=== PATIENT | male | born 1935 | race Caucasian/White ===

== ENCOUNTER 2017-03-31 04:47 | Inpatient (IN) | payer OTHER ==
[2017-03-31] VITALS (8 sets, daily range): BP systolic 137–153; BP diastolic 63–83; PULSE 50–91; TEMP 36.5–37; O2SAT 89–99; BMI 34.0
[~2017-03-31] VITALS: Ht 160 cm; Wt 86.0 kg
[2017-03-31] MEDS ORDERED: ACET325T96 PO (06:51)
[2017-03-31] MEDS ORDERED: DOCU-94 PO (06:51)
[2017-03-31] MEDS ORDERED: OMEG10007 PO (06:51)
[2017-03-31] MEDS ORDERED: MULTTAB58 PO (06:51)
[2017-03-31] MEDS ORDERED: PRLSR20 PO (06:51)
[2017-03-31] MEDS ORDERED: ASCO500T16 PO (06:51)
[2017-03-31] MEDS ORDERED: ASPI1CHW12 (06:51)
[2017-03-31] MEDS ORDERED: ATOR10TA82 PO (06:51)
[2017-03-31] MEDS ORDERED: MoRPHine SULFATE 2 MG/ML CARP IV PRN ×2 (07:00→10:45)
[2017-03-31] MEDS ORDERED: ONDANSETRON INJ 2 MG/ML 2 ML VIAL IV PRN ×2 (07:00→07:45)
[2017-03-31] MEDS ORDERED: MoRPHine SULFATE 4 MG/ML 1 ML CARP\\VIAL IV PRN ×2 (07:00→10:45)
[2017-03-31] MEDS ORDERED: LORAZEPAM 2 MG/ML 1 ML VIAL IV PRN ×2 (07:45)
[2017-03-31] MEDS: SODIUM CHLORIDE 0.9% 1000ML 1,000 ML IV SCH ×2 (07:59→17:30)
[2017-03-31] MEDS ORDERED: LORAZEPAM INJ 1 MG in SYRINGE 0.5 ML IV PRN (08:00)
[2017-03-31] MEDS ORDERED: LORAZEPAM INJ 0.5 MG in SYRINGE 0.75 ML IV PRN (08:00)
--- NOTE | 2017-03-31 08:32 | Surgery Consultation ---
Consultation Date of Consultation: Mar 31, 2017. Attending Physician: Ronak Walker M.D. Reason for Consultation: SBO History of Present Illness Patient is an 81M who was seen in [facility] for abdominal pain, nausea and vomiting which started yesterday afternoon. At that time he was diagnosed with a SBO based on CT findings and exam. He was originally going to be transferred to [facility] however they did not have any beds at the time. He was then transferred to [facility] for further care. At this time he is having some abdominal pain and nausea. He has been having intermittent episodes of vomiting as well. He is urinating without difficulty and passing some gas. Reports he had a small BM yesterday and about the same the day before. Denies blood in stool. No fever/chills/recent illness. PSHx significant for open colectomy. He currently take aspirin 81 mg QD. Denies use of other blood thinning or anticoagulant medications. No labs or Imaging on file in [facility] yet. Social History Smoking Status: Former Smoker Allergies Coded Allergies: Penicillins (Verified Allergy, Unknown, 03/31/17) HIVES Uncoded Allergies: N (Allergy, Unknown, 04/20/02) NKFA (Allergy, Unknown, 04/20/02) NO (Allergy, Unknown, 04/20/02) NO-CLOTH ADHESIVE CAUSES BLISTERS (Allergy, Unknown, 04/20/02) PCN-HIVES (Allergy, Unknown, 04/20/02) Home Medications Scheduled Acetaminophen Tab (Tylenol), 650 MG PO BID Ascorbic Acid (Ascorbic Acid), 500 MG PO DAILY Aspirin (Aspirin 81 Low Dose), DAILY Atorvastatin (Lipitor), 10 MG PO DAILY Docusate Sodium (Colace), 1 CAP PO BID Fish Oil ([place]-3), 1 CAP PO DAILY Multiple Vitamin (Multivitamin), 1 TAB PO DAILY Omeprazole (Prilosec), 20 MG PO DAILY Current Inpatient Medications Current Inpatient Medications Medications (Trade) Dose Ordered Sig/Salvatore Route Start Time Stop Time Status Last Admin Dose Admin Sodium Chloride 1,000 ml @ 100 mls/hr Q10H IV 03/31/17 07:00 04/30/17 06:59 03/31/17 07:59 100 MLS/HR Ondansetron HCl (Zofran Inj) 4 mg Q6H PRN IV 03/31/17 07:00 04/30/17 06:59 Morphine Sulfate (MoRPHine SULFATE INJ) 2 mg PRN PRN IV 03/31/17 07:00 04/14/17 06:59 Morphine Sulfate (MoRPHine SULFATE INJ) 4 mg PRN PRN IV 03/31/17 07:00 04/14/17 06:59 Ondansetron HCl (Zofran Inj) 4 mg Q6H PRN IV 03/31/17 07:45 04/30/17 07:44 Lorazepam 0.5 mg/ Syringe 1 ml @ 1 mls/min Q4H PRN IV 03/31/17 08:00 04/30/17 07:59 Lorazepam 1 mg/ Syringe 1 ml @ 1 mls/min Q4H PRN IV 03/31/17 08:00 04/30/17 07:59 Review of Systems Constitutional: No fever, No chills Abdomen: + pain (Generalized), + nausea, + vomiting, No diarrhea, No constipation Genitourinary - Male: No dysuria Physical Exam Date Time Temp Pulse Resp B/P (MAP) Pulse Ox O2 Delivery O2 Flow Rate FiO2 03/31/17 06:27 37.0 79 20 138/63 97 Nasal Cannula 5.0 Patient in room sitting up on side of bed hunched over. Family present sitting and standing outside the room. General Appearance: WD/WN, + mild distress Head: normocephalic, atraumatic Neck: trachea midline Respiratory/Chest: no respiratory distress, no accessory muscle use Abdomen/GI: no organomegaly, no pulsatile mass, + tenderness (Generalized), + distended (Mild) Neurologic/Psych: alert, normal mood/affect, oriented x 3 Skin: normal color, warm/dry Assessment & Plan Abdominal pain, nausea, vomiting, CT showing findings significant for SBO, Labs and imaging from [facility] reviewed. Pain controlled, mild leukocytosis, NGT placed. Will opt for conservative management at this time. NPO, Continue NGT on LIS, IV Fluids, IV pain medication PRN, IV Zofran PRN for nausea, SCDs. Patient seen and examined with Dr. Carrillo - Findings discussed. Please contact with questions or concerns.
[2017-03-31] MEDS ORDERED: ALBINS INH (09:57)
[2017-03-31] MEDS ORDERED: FERR325T5 PO (09:57)
--- NOTE | 2017-03-31 10:15 | History and Physical ---
History & Physical Date & Time of Service: Mar 31, 2017 at 09:52 Chief Complaint: SBO Primary Care Physician: Derek Armijo M.D. History of Present Illness Source: patient, hospital records This is an 81 y/o male with a history of HTN, HLD, DM II, COPD, pulmonary fibrosis, h/o prostate cancer, and GERD who presented on 03/31 from [facility] with abdominal pain and small bowel obstruction. The patient states he had developed abdominal pain, nausea and vomiting one day prior to arrival. He initially presented to the [facility] and was found to have a small bowel obstruction that was confirmed by CT. He was then transferred to [facility] for management. NGT was placed which has had good output. He currently denies any abdominal pain and states his nausea and vomiting have resolved. He does state that he had a very small, loose bowel movement early this morning around 2 am. He complains of a sore throat now after the NGT was placed. He reports a history of an open colectomy due to diverticulitis over 20 years ago, with h/o colostomy and s/p take down. He also had a laparoscopic cholecystectomy prior to that. The patient denies fevers, chills, sweats, chest pain, palpitations, claudication, cough, wheezing, shortness of breath, nausea, vomiting, abdominal pain, dysuria, hematuria, urinary retention, paralysis, weakness, numbness and tingling. Past Medical/Surgical History HTN HLD DM II COPD Pulmonary fibrosis H/o prostate cancer s/p cryotherapy GERD Surgical history: lap gagandeep, open colectomy w/colostomy, colostomy take down Family History Non-contributory Social History Smoking Status: Former Smoker (quit 30 years ago) Smokeless Tobacco Use: No Alcohol Use: occasionally (rarely, about 1 glass of wine per month) Drug Use: none Marital Status: Housing status: lives with significant other Occupational Status: retired Immunizations History of Influenza Vaccine: Unknown Multi-Drug Resistant Organisms History of MDRO: No Allergies Coded Allergies: Penicillins (Verified Allergy, Unknown, 03/31/17) HIVES Uncoded Allergies: N (Allergy, Unknown, 04/20/02) NKFA (Allergy, Unknown, 04/20/02) NO (Allergy, Unknown, 04/20/02) NO-CLOTH ADHESIVE CAUSES BLISTERS (Allergy, Unknown, 04/20/02) PCN-HIVES (Allergy, Unknown, 04/20/02) Home Medications Scheduled Acetaminophen Tab (Tylenol), 650 MG PO BID Ascorbic Acid (Ascorbic Acid), 500 MG PO DAILY Aspirin (Aspirin 81 Low Dose), DAILY Atorvastatin (Lipitor), 1 TAB PO DAILY Docusate Sodium (Colace), 1 CAP PO BID Ferrous Sulfate (Ferrous Sulfate), 1 TAB PO DAILY Fish Oil ([place]-3), 1 CAP PO DAILY Losartan Potassium (Losartan Potassium), 25 MG PO DAILY Multiple Vitamin (Multivitamin), 1 TAB PO DAILY Nintedanib Esylate (Ofev), 150 MG PO DAILY Omeprazole (Prilosec), 20 MG PO DAILY Tamsulosin HCl (Tamsulosin HCl), 0.4 MG PO DAILY Scheduled PRN Ipratropium-Albuterol (Duoneb), 1 TREATMENT INH Q6H PRN for SOB/Wheezing Review of Systems Constitutional: No fever, No chills, No sweats Eyes: No worsening of vision, No eye pain, No diplopia ENT: +Sore throat. No hearing loss, No nasal symptoms, No trouble swallowing Respiratory: No cough, No wheezing, No shortness of breath Cardiovascular: No chest pain, No claudication, No palpitations Abdomen: No pain, No nausea, No vomiting Musculoskeletal: No joint pain, No muscle pain, No swelling Genitourinary - Male: No dysuria, No urinary retention, No hematuria Neurologic: No paralysis, No weakness, No numbness/tingling Integumentary: No rash, No itch, No color change Physical Exam Vital Signs Date Time Temp Pulse Resp B/P (MAP) Pulse Ox O2 Delivery O2 Flow Rate FiO2 03/31/17 07:15 Nasal Cannula 5.0 03/31/17 07:15 36.5 82 20 137/83 (101) 97 Nasal Cannula 5.0 03/31/17 06:27 37.0 79 20 138/63 97 Nasal Cannula 5.0 General appearance: +Obese. Well-developed, well-nourished, no apparent distress Head: Normocephalic, atraumatic Eyes: Normal inspection, PERRL, EOMI ENT: +NGT in place. Normal ENT inspection, hearing grossly normal, pharynx normal Neck: Supple, no JVD, trachea midline Respiratory/Chest: +Diffuse rhonchi, wheezing in bases. On 5L NC. Normal breath sounds, no respiratory distress Cardiovascular: +Systolic murmur. Regular rate & rhythm, no gallop Abdomen/GI: +Upper quadrants mildly TTP. Normal bowel sounds, soft Extremities/Musculoskeletal: +1+ pitting edema. Normal inspection, no calf tenderness Neurological/Psych: Alert, normal mood/affect, oriented x 3 Skin: Normal color, warm/dry, no rash Impression Assessment and Plan 81 y/o male with a history of HTN, HLD, DM II, COPD, pulmonary fibrosis, h/o prostate cancer, BPH, and GERD who presented on 03/31 from [facility] with abdominal pain and small bowel obstruction. Pt arrived afebrile, VSS. Labs from OSH show leukocytosis with WBC of 14. Small bowel obstruction -Admit to med/surg -Continue NGT on low intermittent suction -General surgery consulted, appreciate recs: NPO, continue NGT on LIS. Continue IVF, IV pain medication and IV Zofran prn, and SCDs. -NSS at 100 cc/hr -Morphine 2-4 mg IV q4h prn pain, Zofran 4 mg IV q6h prn pain HTN, HLD--stable -Taking ASA, losartan 25 mg PO qd, Lipitor 20 mg PO qd. Currently on hold while NPO DM II--diet controlled only per pt -Check HgbA1c -Insulin sliding scale -Check BSGs q6h while NPO COPD, pulmonary fibrosis--history per pt. No maintenance therapy for COPD, only DuoNebs q6h prn and chronic oxygen -Pt wears 3L NC at rest, 4-5L NC with ambulation at home -O2 by protocol. Currently on 5L -Start DuoNebs QIDR and q2h prn SOB/wheezing -Reports taking Ofev for pulmonary fibrosis, originally BID but now only qd H/o prostate cancer s/p cryotherapy--in remission per pt BPH -Takes Flomax 0.4 mg PO hs at home, on hold while NPO GERD -Convert Prilosec to Protonix when taking PO DVT prophylaxis -Hold chemical prophylaxis in case procedure is needed -MANGO delaney and SCDs Code Status -Level I, FULL RESUSCITATION STATUS PA Physician Supervision Note: I interviewed and examined the patient. Discussed with Abbie Zamarripa PAC and agree with findings and plan as documented in the note. Any exceptions or clarifications are listed here: None Patient is much relieved after the NG tube drained over a liter of gastric contents. He's never had a small bowel obstruction since his previous surgeries on his abdomen. He's had an ileostomy with reversal after a bowel resection due to diverticulitis. Vital signs reviewed and stable Abdomen exam shows distention nontender hyper active bowel sounds Small bowel obstruction with concern for adhesions given previous abdominal surgery, nothing by mouth status IV fluid hydration evaluation by general surgery managing diabetes with insulin sliding scale monitoring for toxic effect continuing monitoring chronic problems of COPD hypertension and BPH Documented By: Carmelo Aleman Level of Care Med/Surg Advanced Directives Existing Living Will: Yes Existing Power of Event Operations Manager: No Resuscitation Status FULL RESUSCITATION VTE Prophylaxis VTE Risk Assessment Done? Y/N: Yes Risk Level: Moderate Given or contraindicated: Josue Su, SCD's
[2017-03-31 10:23] LABS: HEMATOCRIT 38.3 % (42-52); HEMOGLOBIN 13.2 g/dL (14.0-18.0); MEAN CELL VOLUME 90.1 fL (80-100); MEAN CORPUSCULAR HEMOGLOBIN 31.1 pg (25-34); MEAN CORPUSCULAR HGB CONC 34.5 g/dl (32-36); MEAN PLATELET VOLUME 8.9 fL (7.4-10.4); PLATELET COUNT 217 K/uL (130-400); RED CELL DISTRIBUTION WIDTH CV 12.7 % (11.5-14.5); RED CELL DISTRIBUTION WIDTH SD 41.9 fL (36.4-46.3); WHITE BLOOD COUNT 10.54 K/uL (4.8-10.8)
[2017-03-31] MEDS ORDERED: MAGNESIUM HYDROXIDE SUSP 30 ML UDC PO PRN (10:30)
[2017-03-31] MEDS ORDERED: ACETAMINOPHEN 325 MG TAB PO PRN (10:30)
[2017-03-31] MEDS ORDERED: GLUCAGON FOR INJ 1 MG VIAL SQ PRN (10:30)
[2017-03-31] MEDS ORDERED: DEXTROSE 50% 50 ML SYR IV PRN (10:30)
[2017-03-31] MEDS ORDERED: GLUCOSE 40% GEL 15 GM TUBE PO PRN (10:30)
[2017-03-31] MEDS ORDERED: POLYETHYLENE (MIRALAX) 17 GM PACK PO PRN (10:30)
[2017-03-31] MEDS ORDERED: ALUMINUM/MAGNESIUM/SIMETH (MAALOX MAX) 30 ML UDC PO PRN (10:30)
[2017-03-31] MEDS ORDERED: GLUCOSE 10 TABS/TUBE PO PRN (10:30)
[2017-03-31] MEDS ORDERED: CZR25 PO (10:31)
[2017-03-31] MEDS ORDERED: ATOR-54 PO (10:31)
[2017-03-31] MEDS ORDERED: IPRASOL4 INH (10:31)
[2017-03-31] MEDS ORDERED: FLM4 PO (10:31)
[2017-03-31] MEDS ORDERED: NINT1CAP2 PO (10:34)
[2017-03-31 10:45] LABS: CALCIUM 8.6 mg/dl (8.5-10.1); CREATININE 1.48 mg/dl (0.60-1.40); POTASSIUM 3.6 mmol/L (3.5-5.1)
[2017-03-31] MEDS: INSULIN ASPART 100 UNITS/ML 3 ML PEN SC SCH ×4 (12:00→23:52)
[2017-03-31] MEDS: ALBUT/IPRATROP 3MG/0.5MG NEB 3 ML VIAL INH SCH ×3 (12:01→20:06)
[2017-03-31] MEDS ORDERED: HydrALAZINE HCL 20 MG/ML VIAL IV PRN (19:45)
[2017-03-31] MEDS ORDERED: NURSING VERBAL MED ORDER ONE ×2 (21:15→23:15)
[2017-03-31] MEDS: CHLORASEPTIC 1.4% SOLN 180 ML BTL MT PRN (22:34)
[2017-04-01] VITALS (7 sets, daily range): BP systolic 117–167; BP diastolic 55–89; PULSE 67–92; TEMP 36.6–36.9; O2SAT 75–99
[2017-04-01] MEDS: SODIUM CHLORIDE 0.9% 1000ML 1,000 ML IV SCH (03:09)
[2017-04-01] MEDS: INSULIN ASPART 100 UNITS/ML 3 ML PEN SC SCH ×3 (06:00→18:00)
[2017-04-01 06:51] LABS: HEMATOCRIT 39.4 % (42-52); HEMOGLOBIN 13.3 g/dL (14.0-18.0); MEAN CELL VOLUME 92.3 fL (80-100); MEAN CORPUSCULAR HEMOGLOBIN 31.1 pg (25-34); MEAN CORPUSCULAR HGB CONC 33.8 g/dl (32-36); MEAN PLATELET VOLUME 8.9 fL (7.4-10.4); PLATELET COUNT 200 K/uL (130-400); RED CELL DISTRIBUTION WIDTH CV 12.9 % (11.5-14.5); WHITE BLOOD COUNT 11.48 K/uL (4.8-10.8)
[2017-04-01] MEDS: ALBUT/IPRATROP 3MG/0.5MG NEB 3 ML VIAL INH SCH ×4 (07:14→19:28)
--- NOTE | 2017-04-01 07:17 | SURGERY PROGRESS NOTE ---
DATE: 04/01/2017 Gulshan feels much better since yesterday and his NG tube has been inserted. His NG drainage initially was 950, it was 350 overnight. His abdomen is much softer, although still slightly distended. He states he has small flatus. Laboratory studies this morning is pending. At this point, we will get an upper GI with small bowel follow through on this gentleman. We will increase his activity and hopefully we can avoid surgery and most likely we will, given the slight resolution that he has had so far.
[2017-04-01 07:20] LABS: CALCIUM 8.5 mg/dl (8.5-10.1); CREATININE 1.31 mg/dl (0.60-1.40); POTASSIUM 3.6 mmol/L (3.5-5.1)
[2017-04-01] MEDS ORDERED: MAGNESIUM SULFATE 1GM / D5W 1 GM in PREMIXED IN D5W 100 ML IV ONE (08:00)
[2017-04-01] MEDS: SODIUM CHLOR 0.45% + 20MEQ KCL 1,000 ML IV SCH ×2 (08:09→16:32)
--- NOTE | 2017-04-01 09:09 | Hospitalist Progress Note ---
Hospitalist Progress Note Date of Service Apr 01, 2017. (Abbie Zamarripa ., NIKUNJC) Subjective Pt evaluation today including: conversation w/ patient, conversation w/ family (, daughter and granddaughter at bedside), physical exam, chart review, lab review, review of studies, review of inpatient medication list Pain: None currently PO Intake: NPO Voiding: no voiding problems Patient reports feeling well. He states he did have some intermittent, brief, 10/10 sharp jabs of pain in his lower abdomen while he was doing the upper GI with small bowel follow through, but the pain would quickly resolve on its own. He currently he denies any abdominal pain. The patient denies fevers, chills, sweats, chest pain, palpitations, claudication, cough, wheezing, shortness of breath, nausea, vomiting, abdominal pain, dysuria, hematuria, urinary retention , paralysis, weakness, numbness and tingling. Additional Comments: See HPI for pertinent positives and negatives. All other systems reviewed and negative. (Abbie Zamarripa ., ETHAN-C) Objective Vital Signs Date Time Temp Pulse Resp B/P (MAP) Pulse Ox O2 Delivery O2 Flow Rate FiO2 04/01/17 07:57 36.6 74 20 156/89 (111) 98 Nasal Cannula 5.0 04/01/17 07:15 82 99 5.0 04/01/17 07:10 Nasal Cannula 5.0 04/01/17 01:21 Nasal Cannula 5.0 03/31/17 23:34 36.8 81 18 153/76 (101) 99 Nasal Cannula 5.0 03/31/17 20:06 78 94 5.0 03/31/17 19:50 73 95 Nasal Cannula 5.0 03/31/17 16:00 Nasal Cannula 5.0 03/31/17 15:35 36.9 50 17 143/71 (95) 98 Nasal Cannula 4.0 03/31/17 15:08 91 89 5.0 03/31/17 12:03 65 93 5.0 (Abbie Zamarripa ., ETHAN-C) Physical Exam Notes: General appearance: +Obese. Well-developed, well-nourished, no apparent distress Head: Normocephalic, atraumatic Eyes: Normal inspection, PERRL, EOMI ENT: +NGT in place. Normal ENT inspection, hearing grossly normal, pharynx normal Neck: Supple, no JVD, trachea midline Respiratory/Chest: +Diffuse rhonchi, wheezing in bases. On 5L NC. Normal breath sounds, no respiratory distress Cardiovascular: +Systolic murmur. Regular rate & rhythm, no gallop Abdomen/GI: +Lower quadrants very mildly TTP. Normal bowel sounds, soft Extremities/Musculoskeletal: +Trace pitting edema. Normal inspection, no calf tenderness Neurological/Psych: Alert, normal mood/affect, oriented x 3 Skin: Normal color, warm/dry, no rash (Abbie Zamarripa ., JAK) Laboratory Results Last 24 Hours Test 03/31/17 09:57 03/31/17 12:29 03/31/17 19:27 03/31/17 21:38 White Blood Count 10.54 K/uL Red Blood Count 4.25 M/uL Hemoglobin 13.2 g/dL Hematocrit 38.3 % Mean Corpuscular Volume 90.1 fL Mean Corpuscular Hemoglobin 31.1 pg Mean Corpuscular Hemoglobin Concent 34.5 g/dl RDW Standard Deviation 41.9 fL RDW Coefficient of Variation 12.7 % Platelet Count 217 K/uL Mean Platelet Volume 8.9 fL Sodium Level 138 mmol/L Potassium Level 3.6 mmol/L Chloride Level 107 mmol/L Carbon Dioxide Level 26 mmol/L Anion Gap 5.0 mmol/L Blood Urea Nitrogen 18 mg/dl Creatinine 1.48 mg/dl Est Creatinine Clear Calc Drug Dose 36.9 ml/min Estimated GFR () 50.0 Estimated GFR (Non- 43.1 BUN/Creatinine Ratio 12.3 Random Glucose 101 mg/dl Estimated Average Glucose 126 mg/dl Hemoglobin A1c 6.0 % Calcium Level 8.6 mg/dl Bedside Glucose 93 mg/dl 82 mg/dl 83 mg/dl Test 03/31/17 23:50 04/01/17 06:41 Bedside Glucose 83 mg/dl White Blood Count 11.48 K/uL Red Blood Count 4.27 M/uL Hemoglobin 13.3 g/dL Hematocrit 39.4 % Mean Corpuscular Volume 92.3 fL Mean Corpuscular Hemoglobin 31.1 pg Mean Corpuscular Hemoglobin Concent 33.8 g/dl RDW Standard Deviation 43.0 fL RDW Coefficient of Variation 12.9 % Platelet Count 200 K/uL Mean Platelet Volume 8.9 fL Sodium Level 142 mmol/L Potassium Level 3.6 mmol/L Chloride Level 110 mmol/L Carbon Dioxide Level 24 mmol/L Anion Gap 8.0 mmol/L Blood Urea Nitrogen 17 mg/dl Creatinine 1.31 mg/dl Est Creatinine Clear Calc Drug Dose 41.7 ml/min Estimated GFR () 57.9 Estimated GFR (Non- 50.0 BUN/Creatinine Ratio 13.2 Random Glucose 78 mg/dl Calcium Level 8.5 mg/dl Magnesium Level 1.5 mg/dl (Abbie Zamarripa ., PA-C) Diagnostic Results Reviewed the following studies and agree with interpretation as follows: SMALL BOWEL STUDY CLINICAL HISTORY: BOWEL OBSTRUCTION COMPARISON STUDY: None. FLUOROSCOPY TIME: 0.8 minutes. FINDINGS: 12 overhead and 8 fluoroscopic spot images of the small bowel were performed over a 5 hour time interval. Contrast was injected through the indwelling nasogastric tube which terminates in the stomach. Multiple distended loops of small bowel are identified. A few of the distal ileal loops are decompressed. There is no clear transition point. However, this may represent a partial small bowel obstruction. Contrast extends into the proximal colon. There is suggestion of prior right hemicolectomy with ileocolonic anastomosis. Right total hip arthroplasty. IMPRESSION: 1. Multiple distended loops of small bowel. The distal ileal loops appear to be decompressed. Therefore, this raises the possibility of a partial small bowel obstruction. No clear transition point identified this time. 2. The contrast reached the colon at the 5 hour time interval consistent with delayed transit. 3. Suggestion of a prior right hemicolectomy with ileocolonic anastomosis. 4. Nasogastric tube terminates in the stomach. (Abbie Zamarripa ., PA-C) Assessment and Plan 81 y/o male with a history of HTN, HLD, DM II, COPD, pulmonary fibrosis, h/o prostate cancer, BPH, and GERD who presented on 03/31 from [facility] with abdominal pain and small bowel obstruction. Pt arrived afebrile, VSS. Labs from OSH show leukocytosis with WBC of 14. Small bowel obstruction--improving -Admit to med/surg -Continue NGT on low intermittent suction. NGT with 350 cc output overnight. -General surgery consulted, appreciate recs: Patient will go for upper GI with small bowel follow through. Increase activity. -IVF changed to 1/2NSS + 20 mEq KCl at 125 cc/hr -Morphine 2-4 mg IV q4h prn pain, Zofran 4 mg IV q6h prn pain -Mild leukocytosis, WBC 11.48 on 04/01, up from 10.54; however WBC had been up to 14 at OSH -Small bowel follow through: contrast reached colon with delayed transit -Clamp NGT -NPO except sips and chips Hypomagnesemia -Magnesium 1.5, mag sulfate 1 gm IV x 1 HTN, HLD--stable -Taking ASA, losartan 25 mg PO qd, Lipitor 20 mg PO qd. Currently on hold while NPO DM II--diet controlled only per pt -HgbA1c 6.0 on 03/31 -Insulin sliding scale -Check BSGs q6h while NPO COPD, pulmonary fibrosis--history per pt. No maintenance therapy for COPD, only DuoNebs q6h prn and chronic oxygen -Pt wears 3L NC at rest, 4-5L NC with ambulation at home -O2 by protocol. Currently on 5L. Wean as tolerated -Continue DuoNebs QIDR and q2h prn SOB/wheezing -Reports taking Ofev for pulmonary fibrosis, originally BID but now only qd H/o prostate cancer s/p cryotherapy--in remission per pt BPH -Takes Flomax 0.4 mg PO hs at home, on hold while NPO GERD -Convert Prilosec to Protonix when taking PO DVT prophylaxis -Hold chemical prophylaxis in case procedure is needed -MANGO delaney and SCDs Code Status -Level I, FULL RESUSCITATION STATUS (Abbie Zamarripa ., PA-C) PA Physician Supervision Note: I interviewed and examined the patient. Discussed with Abbie Zamarripa PAC and agree with findings and plan as documented in the note. Any exceptions or clarifications are listed here: None Patient does feel improved today is small bowel follow-through does not show complete obstruction however he did have delayed transit time through small bowel. He has tolerated being off intermittent suction will continue this to be off we will attempt to give him some ice chips to evaluate him clinically. Surgeries following continue to give advice. His magnesium is low-normal need repleted temperature is 36.8 respiration rate 82 BP 152/70 and O2 sat is 99 on 5 L he is chronically on oxygen His abdomen exam he remains in normal active bowel sounds soft and much more comfortable eyes no focal guarding Small bowel obstruction in the face of previous abdominal surgery with resolution will as mentioned above give him some ice chips and see clinically does not reinstitute any oral medications at the time Documented By: Carmelo Aleman (Carmelo Aleman M.D.)
--- NOTE | 2017-04-01 14:47 | DIAGNOSTIC IMAGING REPORT ---
SMALL BOWEL STUDY CLINICAL HISTORY: BOWEL OBSTRUCTION COMPARISON STUDY: None. FLUOROSCOPY TIME: 0.8 minutes. FINDINGS: 12 overhead and 8 fluoroscopic spot images of the small bowel were performed over a 5 hour time interval. Contrast was injected through the indwelling nasogastric tube which terminates in the stomach. Multiple distended loops of small bowel are identified. A few of the distal ileal loops are decompressed. There is no clear transition point. However, this may represent a partial small bowel obstruction. Contrast extends into the proximal colon. There is suggestion of prior right hemicolectomy with ileocolonic anastomosis. Right total hip arthroplasty. IMPRESSION: 1. Multiple distended loops of small bowel. The distal ileal loops appear to be decompressed. Therefore, this raises the possibility of a partial small bowel obstruction. No clear transition point identified this time. 2. The contrast reached the colon at the 5 hour time interval consistent with delayed transit. 3. Suggestion of a prior right hemicolectomy with ileocolonic anastomosis. 4. Nasogastric tube terminates in the stomach. Electronically signed by: Husam Barajas M.D. 04/01/2017 2:16 PM Dictated Date/Time: 04/01/2017 2:10 PM
[2017-04-01] MEDS: CHLORASEPTIC 1.4% SOLN 180 ML BTL MT PRN (16:33)
[2017-04-02] VITALS (7 sets, daily range): BP systolic 163–169; BP diastolic 69–85; PULSE 68–77; TEMP 36.6–36.8; O2SAT 90–99; Ht 160 cm; Wt 86.0 kg
[2017-04-02] MEDS ORDERED: D5W AND 1/2NSS + 20MEQ KCL 1,000 ML IV ONE (01:30)
[2017-04-02] MEDS: INSULIN ASPART 100 UNITS/ML 3 ML PEN SC SCH ×4 (06:00→18:00)
--- NOTE | 2017-04-02 06:37 | SURGERY PROGRESS NOTE ---
DATE: 04/02/2017 Ray had his upper GI with small bowel follow through yesterday. I saw the results. He did have some contrast going into the colon approximately 5 hour, but still has some moderate small bowel distention. The NG tube was clamped last night. The patient this morning is resting in the side of his bed. His NG tube is stated is clamp. On examination, he was seen lying flat. He still has moderate abdominal distention. He stated that he passed some flatus, but he has not had a bowel movement yet. His last vitals showed a temperature of 36.8, pulse 67, blood pressure 169/69. His lab is pending. His NG output yesterday was 700. At this point, we will reestablish suction on the NG tube until he does have a bowel movement. We will repeat abdominal x-rays to see the pattern of the contrast this morning, but I would hold off feeding and clamping the NG tube at this time.
[2017-04-02 07:30] LABS: HEMATOCRIT 36.9 % (42-52); HEMOGLOBIN 12.5 g/dL (14.0-18.0); MEAN CELL VOLUME 90.7 fL (80-100); MEAN CORPUSCULAR HEMOGLOBIN 30.7 pg (25-34); MEAN CORPUSCULAR HGB CONC 33.9 g/dl (32-36); MEAN PLATELET VOLUME 8.9 fL (7.4-10.4); PLATELET COUNT 205 K/uL (130-400); RED CELL DISTRIBUTION WIDTH CV 12.6 % (11.5-14.5); RED CELL DISTRIBUTION WIDTH SD 41.5 fL (36.4-46.3); WHITE BLOOD COUNT 9.75 K/uL (4.8-10.8)
[2017-04-02] MEDS: ALBUT/IPRATROP 3MG/0.5MG NEB 3 ML VIAL INH SCH ×4 (07:55→19:35)
[2017-04-02 07:57] LABS: CALCIUM 8.5 mg/dl (8.5-10.1); CREATININE 1.14 mg/dl (0.60-1.40); POTASSIUM 3.8 mmol/L (3.5-5.1)
[2017-04-02] MEDS: SODIUM CHLOR 0.45% + 20MEQ KCL 1,000 ML IV SCH ×2 (08:00)
--- NOTE | 2017-04-02 08:19 | DIAGNOSTIC IMAGING REPORT ---
ABDOMEN 2VIEW W/PA CHEST RTN CLINICAL HISTORY: follow up bowel obstruction obstruction COMPARISON STUDY: 04/01/2017 FINDINGS: Diffuse bilateral parenchymal fibrotic change of the lungs. Contrast passed into the colon. Terminal ileum remains visualized. Moderate small bowel distention persists. IMPRESSION: 1. Improved transit of contrast to the colon. 2. Persistent mild distention of several loops of distal small bowel with the terminal ileum at this time appearing unremarkable. The above report was generated using voice recognition software. It may contain grammatical, syntax or spelling errors. Electronically signed by: Eren Villasenor M.D. 04/02/2017 8:18 AM Dictated Date/Time: 04/02/2017 8:17 AM
[2017-04-02] MEDS ORDERED: MAGNESIUM SULFATE 1GM / D5W 1 GM in PREMIXED IN D5W 100 ML IV STA (09:00)
[2017-04-02] MEDS ORDERED: DEXTROSE 10% 1,000 ML IV PRN (09:44)
[2017-04-02] MEDS ORDERED: CONSULT PHARMACY STA (09:44)
[2017-04-02] MEDS ORDERED: TPN/PPN CONSULT PHARMACY PRN (09:45)
--- NOTE | 2017-04-02 10:00 | Hospitalist Progress Note ---
Hospitalist Progress Note Date of Service Apr 02, 2017. (Abbie Zamarripa ., NIKUNJC) Subjective Pt evaluation today including: conversation w/ patient, physical exam, chart review, lab review, review of studies, review of inpatient medication list Pain: None PO Intake: NPO except sips and chips Voiding: no voiding problems The patient reports feeling well but is frustrated about not being able to eat. He denies any abdominal pain, nausea or vomiting. He states he is passing gas , and he reports even having a small bowel movement yesterday afternoon, although none are reported per nursing. He still complains of a sore throat. The patient denies fevers, chills, sweats, chest pain, palpitations, claudication, cough, wheezing, shortness of breath, nausea, vomiting, abdominal pain, dysuria, hematuria, urinary retention, paralysis, weakness, numbness and tingling. Additional Comments: See HPI for pertinent positives and negatives. All other systems reviewed and negative. (Abbie Zamarripa, NIKUNJC) Objective Vital Signs Date Time Temp Pulse Resp B/P (MAP) Pulse Ox O2 Delivery O2 Flow Rate FiO2 04/02/17 08:00 Nasal Cannula 5.0 04/02/17 07:15 36.8 68 20 168/77 (107) 99 Nasal Cannula 5.0 04/02/17 03:07 169/69 (102) 04/01/17 23:45 36.8 67 18 117/55 (75) 95 Nasal Cannula 5.0 04/01/17 20:10 Nasal Cannula 5.0 04/01/17 19:28 80 95 Nasal Cannula 5.0 04/01/17 18:19 92 167/79 (108) 98 Nasal Cannula 5.0 04/01/17 16:15 Nasal Cannula 5.0 04/01/17 16:07 36.9 87 19 166/81 (109) 97 Nasal Cannula 4.0 04/01/17 15:30 85 75 Room Air (Abbie Zamarripa PA-C) Physical Exam Notes: General appearance: +Obese. Well-developed, well-nourished, no apparent distress Head: Normocephalic, atraumatic Eyes: Normal inspection, PERRL, EOMI ENT: +NGT in place, on low intermittent suction. Normal ENT inspection, hearing grossly normal, pharynx normal Neck: Supple, no JVD, trachea midline Respiratory/Chest: +Diffuse rhonchi, wheezing in bases. On 5L NC. Normal breath sounds, no respiratory distress Cardiovascular: +Systolic murmur. Regular rate & rhythm, no gallop Abdomen/GI: +Distention. Normal bowel sounds, non-tender Extremities/Musculoskeletal: Normal inspection, no calf tenderness, no pedal edema Neurological/Psych: Alert, normal mood/affect, oriented x 3 Skin: Normal color, warm/dry, no rash (Abbie Zamarripa ., ETHAN-C) Laboratory Results Last 24 Hours Test 04/01/17 12:00 04/01/17 18:25 04/01/17 19:23 04/01/17 23:58 Bedside Glucose 82 mg/dl 61 mg/dl 94 mg/dl 71 mg/dl Test 04/02/17 06:25 04/02/17 07:06 Bedside Glucose 83 mg/dl White Blood Count 9.75 K/uL Red Blood Count 4.07 M/uL Hemoglobin 12.5 g/dL Hematocrit 36.9 % Mean Corpuscular Volume 90.7 fL Mean Corpuscular Hemoglobin 30.7 pg Mean Corpuscular Hemoglobin Concent 33.9 g/dl RDW Standard Deviation 41.5 fL RDW Coefficient of Variation 12.6 % Platelet Count 205 K/uL Mean Platelet Volume 8.9 fL Sodium Level 141 mmol/L Potassium Level 3.8 mmol/L Chloride Level 108 mmol/L Carbon Dioxide Level 28 mmol/L Anion Gap 4.0 mmol/L Blood Urea Nitrogen 14 mg/dl Creatinine 1.14 mg/dl Est Creatinine Clear Calc Drug Dose 47.9 ml/min Estimated GFR () 68.5 Estimated GFR (Non- 59.1 BUN/Creatinine Ratio 12.1 Random Glucose 89 mg/dl Calcium Level 8.5 mg/dl Magnesium Level 1.7 mg/dl (Abbie Zamarripa ., ETHAN-C) Diagnostic Results Reviewed the following studies and agree with interpretation as follows: ABDOMEN 2VIEW W/PA CHEST RTN CLINICAL HISTORY: follow up bowel obstruction obstruction COMPARISON STUDY: 04/01/2017 FINDINGS: Diffuse bilateral parenchymal fibrotic change of the lungs. Contrast passed into the colon. Terminal ileum remains visualized. Moderate small bowel distention persists. IMPRESSION: 1. Improved transit of contrast to the colon. 2. Persistent mild distention of several loops of distal small bowel with the terminal ileum at this time appearing unremarkable. (Abbie Zamarripa ., JAK) Assessment and Plan 81 y/o male with a history of HTN, HLD, DM II, COPD, pulmonary fibrosis, h/o prostate cancer, BPH, and GERD who presented on 03/31 from [facility] with abdominal pain and small bowel obstruction. Pt arrived afebrile, VSS. Labs from OSH show leukocytosis with WBC of 14. Small bowel obstruction--improving -Admit to med/surg -Continue NGT on low intermittent suction. NGT with 700 cc through 04/01 -General surgery consulted, appreciate recs: Still with distention. Restart low intermittent suction until has BM. Repeat abdominal x-ray. Would hold off on feeding or clamping NGT. -IVF changed to D5 1/2NSS + 20 mEq KCl at 125 cc/hr until PPN initiated -Consult pharmacy for PPN as pt has had 3 days w/o food -Morphine 2-4 mg IV q4h prn pain, Zofran 4 mg IV q6h prn pain -Leukocytosis resolved, WBC 9.75 on 04/02, down from 11.48 -Small bowel follow through: contrast reached colon with delayed transit -NGT w/LIS -NPO except sips and chips -Chest/abdomen x-ray shows improved transit of contrast to colon. Mildly distended loops of small bowel persist. Hypomagnesemia--improving -Magnesium 1.7 on 04/02, mag sulfate 1 gm IV x 1 HTN, HLD--stable -Taking ASA, losartan 25 mg PO qd, Lipitor 20 mg PO qd. Currently on hold while NPO DM II--diet controlled only per pt -HgbA1c 6.0 on 03/31 -Insulin sliding scale -Check BSGs q6h while NPO COPD, pulmonary fibrosis--history per pt. No maintenance therapy for COPD, only DuoNebs q6h prn and chronic oxygen -Pt wears 3L NC at rest, 4-5L NC with ambulation at home -O2 by protocol. Currently on 5L. Wean as tolerated -Continue DuoNebs QIDR and q2h prn SOB/wheezing -Reports taking Ofev for pulmonary fibrosis, originally BID but now only qd H/o prostate cancer s/p cryotherapy--in remission per pt BPH -Takes Flomax 0.4 mg PO hs at home, on hold while NPO GERD -Convert Prilosec to Protonix when taking PO DVT prophylaxis -Hold chemical prophylaxis in case procedure is needed -MANGO nolascoe and SCDs Code Status -Level I, FULL RESUSCITATION STATUS (Abbie Zamarripa ., PA-C) PA Physician Supervision Note: I interviewed and examined the patient. Discussed with Abbie Zamarripa PAC and agree with findings and plan as documented in the note. Any exceptions or clarifications are listed here: None Patient does feel not different despite restarting LIS via NGT, he did have some flatus, vitals are stable, BP slightly elevated O2 sat is 99 on 5 L he is chronically on oxygen Lungs show chronic rales from his fibrosis, abdomen exam continues to remain with normal active bowel sounds soft no focal guarding Small bowel obstruction in the face of previous abdominal surgery with slow buy steady resolution, stable pulmonary fibrosis Documented By: Carmelo Aleman (Carmelo Aleman M.D.)
[2017-04-02] MEDS ORDERED: D5W AND 1/2NSS + 20MEQ KCL 1,000 ML IV SCH ×2 (10:15→16:00)
[2017-04-02 10:27] LABS: PHOSPHORUS 1.8 mg/dl (2.5-4.9)
[2017-04-02] MEDS ORDERED: CUSTOM PERIPHERAL PN 1 BAG IV SCH (16:00)
[2017-04-03] VITALS (8 sets, daily range): BP systolic 148–168; BP diastolic 78–83; PULSE 61–85; TEMP 36.7–36.9; O2SAT 93–98
[2017-04-03] MEDS: INSULIN ASPART 100 UNITS/ML 3 ML PEN SC SCH ×4 (00:39→18:00)
[2017-04-03 05:23] LABS: HEMATOCRIT 35.8 % (42-52); HEMOGLOBIN 12.1 g/dL (14.0-18.0); MEAN CELL VOLUME 90.9 fL (80-100); MEAN CORPUSCULAR HEMOGLOBIN 30.7 pg (25-34); MEAN CORPUSCULAR HGB CONC 33.8 g/dl (32-36); MEAN PLATELET VOLUME 8.6 fL (7.4-10.4); PLATELET COUNT 191 K/uL (130-400); RED CELL DISTRIBUTION WIDTH CV 12.6 % (11.5-14.5); RED CELL DISTRIBUTION WIDTH SD 41.5 fL (36.4-46.3)
[2017-04-03 05:54] LABS: CALCIUM 8.4 mg/dl (8.5-10.1); CREATININE 1.07 mg/dl (0.60-1.40); PHOSPHORUS 2.2 mg/dl (2.5-4.9); POTASSIUM 3.7 mmol/L (3.5-5.1)
[2017-04-03] MEDS: ALBUT/IPRATROP 3MG/0.5MG NEB 3 ML VIAL INH SCH ×4 (07:27→19:05)
[2017-04-03] MEDS ORDERED: CLINDAMYCIN IV 300 MG in DEXTROSE 5% 50ML 50 ML IV SCH (10:00)
--- NOTE | 2017-04-03 10:09 | DIAGNOSTIC IMAGING REPORT ---
CHEST 2 VIEWS ROUTINE CLINICAL HISTORY: Evaluate for right lower lobe pneumonia. COMPARISON STUDY: Chest radiograph April 02, 2017. FINDINGS: A reverse total right shoulder arthroplasty is incidentally noted. Tip of nasogastric tube is not well visualized on this exam but is least within the stomach. Contrast within portions of the colon is incidentally noted. There is no pneumothorax or pleural effusion. There is moderate elevation the right hemidiaphragm. There is suspected mild cardiomegaly. Diffuse interstitial thickening represents interstitial lung disease with primary fibrosis. No superimposed consolidation is identified. IMPRESSION: Diffuse interstitial thickening suggestive of pulmonary fibrosis. No superimposed consolidation identified. Electronically signed by: Osvaldo Alanis M.D. 04/03/2017 10:08 AM Dictated Date/Time: 04/03/2017 10:05 AM
--- NOTE | 2017-04-03 10:36 | Surgery Progress Note ---
Surgery Progress Note Date of Service Apr 03, 2017. Subjective + bowel movement, + flatus ("large amount"), No nausea, No vomiting NGT has been clamped since yesterday Objective Vital Signs: Date Time Temp Pulse Resp B/P (MAP) Pulse Ox O2 Delivery O2 Flow Rate FiO2 04/03/17 07:27 82 16 96 Nasal Cannula 5.0 04/03/17 06:56 36.7 75 18 168/83 (111) 98 Nasal Cannula 5.0 04/03/17 00:35 Nasal Cannula 5.0 04/02/17 23:55 36.7 73 20 165/80 (108) 98 Nasal Cannula 5.0 04/02/17 19:36 76 18 94 Nasal Cannula 5.0 04/02/17 16:08 36.6 74 19 163/85 (111) 96 Nasal Cannula 5.0 04/02/17 16:00 Nasal Cannula 5.0 04/02/17 15:18 77 18 90 Nasal Cannula 5.0 04/02/17 11:16 75 95 Nasal Cannula 5.0 Abdomen: normal bowel sounds, non tender, soft, + distended (mild) Laboratory Results: Results Past 24 Hours Test 04/02/17 12:17 04/02/17 18:34 04/02/17 23:56 04/03/17 05:07 Range/Units Bedside Glucose 87 93 115 70-99 mg/dl White Blood Count 9.30 4.8-10.8 K/uL Red Blood Count 3.94 4.7-6.1 M/uL Hemoglobin 12.1 14.0-18.0 g/dL Hematocrit 35.8 42-52 % Mean Corpuscular Volume 90.9 80-100 fL Mean Corpuscular Hemoglobin 30.7 25-34 pg Mean Corpuscular Hemoglobin Concent 33.8 32-36 g/dl RDW Standard Deviation 41.5 36.4-46.3 fL RDW Coefficient of Variation 12.6 11.5-14.5 % Platelet Count 191 130-400 K/uL Mean Platelet Volume 8.6 7.4-10.4 fL Sodium Level 138 136-145 mmol/L Potassium Level 3.7 3.5-5.1 mmol/L Chloride Level 106 98-107 mmol/L Carbon Dioxide Level 29 21-32 mmol/L Anion Gap 3.0 3-11 mmol/L Blood Urea Nitrogen 13 7-18 mg/dl Creatinine 1.07 0.60-1.40 mg/dl Est Creatinine Clear Calc Drug Dose 51.0 ml/min Estimated GFR () 74.0 Estimated GFR (Non- 63.9 BUN/Creatinine Ratio 11.9 10-20 Random Glucose 112 70-99 mg/dl Calcium Level 8.4 8.5-10.1 mg/dl Phosphorus Level 2.2 2.5-4.9 mg/dl Magnesium Level 2.0 1.8-2.4 mg/dl C-Reactive Protein 7.44 0-0.29 mg/dl Albumin 3.0 3.4-5.0 gm/dl Triglycerides Level 104 0-150 mg/dl Test 04/03/17 05:56 Range/Units Bedside Glucose 107 70-99 mg/dl Assessment & Plan He feels better today Passed small bm's and a lot of flatus NGT has been clamped since yesterday without nausea Would d/c NGT today but go very slow with diet advancement, sips of clear liquids today
--- NOTE | 2017-04-03 11:11 | Progress Note ---
Subjective Date of Service: Apr 03, 2017. Subjective pt looks and feels much better today, little cough, did have small BM's in last day, I did discuss this case personally with DR Martell and he will decide if we need to advance diet or clamp NGT Review of Systems Constitutional: + weakness, No fever, No chills Respiratory: + cough, No shortness of breath, No dyspnea on exertion Cardiac: No chest pain, No edema Abdomen: + constipation, No pain, No nausea, No vomiting, No diarrhea Male : No dysuria, No urinary frequency Neurologic: No weakness, No balance problems Psychiatric: No depression symptoms, No anhedonism Objective Vital Signs Date Time Temp Pulse Resp B/P (MAP) Pulse Ox O2 Delivery O2 Flow Rate FiO2 04/03/17 10:59 85 16 98 Nasal Cannula 5.0 04/03/17 07:27 82 16 96 Nasal Cannula 5.0 04/03/17 06:56 36.7 75 18 168/83 (111) 98 Nasal Cannula 5.0 04/03/17 00:35 Nasal Cannula 5.0 04/02/17 23:55 36.7 73 20 165/80 (108) 98 Nasal Cannula 5.0 04/02/17 19:36 76 18 94 Nasal Cannula 5.0 04/02/17 16:08 36.6 74 19 163/85 (111) 96 Nasal Cannula 5.0 04/02/17 16:00 Nasal Cannula 5.0 04/02/17 15:18 77 18 90 Nasal Cannula 5.0 04/02/17 11:16 75 95 Nasal Cannula 5.0 Physical Exam General Appearance: WD/WN, + mild distress Eyes: normal inspection, sclerae normal Respiratory/Chest: chest non-tender, + rales (from his fibrosis) Cardiovascular: regular rate, rhythm, no murmur Abdomen: normal bowel sounds, non tender, soft Extremities: no pedal edema, no calf tenderness Neurologic/Psychiatric: alert, oriented x 3 Laboratory Results Last 24 Hours Test 04/02/17 12:17 04/02/17 18:34 04/02/17 23:56 04/03/17 05:07 Bedside Glucose 87 mg/dl 93 mg/dl 115 mg/dl White Blood Count 9.30 K/uL Red Blood Count 3.94 M/uL Hemoglobin 12.1 g/dL Hematocrit 35.8 % Mean Corpuscular Volume 90.9 fL Mean Corpuscular Hemoglobin 30.7 pg Mean Corpuscular Hemoglobin Concent 33.8 g/dl RDW Standard Deviation 41.5 fL RDW Coefficient of Variation 12.6 % Platelet Count 191 K/uL Mean Platelet Volume 8.6 fL Sodium Level 138 mmol/L Potassium Level 3.7 mmol/L Chloride Level 106 mmol/L Carbon Dioxide Level 29 mmol/L Anion Gap 3.0 mmol/L Blood Urea Nitrogen 13 mg/dl Creatinine 1.07 mg/dl Est Creatinine Clear Calc Drug Dose 51.0 ml/min Estimated GFR () 74.0 Estimated GFR (Non- 63.9 BUN/Creatinine Ratio 11.9 Random Glucose 112 mg/dl Calcium Level 8.4 mg/dl Phosphorus Level 2.2 mg/dl Magnesium Level 2.0 mg/dl C-Reactive Protein 7.44 mg/dl Albumin 3.0 gm/dl Triglycerides Level 104 mg/dl Test 04/03/17 05:56 Bedside Glucose 107 mg/dl Assessment and Plan 81M presents with N/V and found to have SBO, has a history of previous bowel surgery and ileostomy with reversal due to diverticulitis in the distant past. Small bowel obstruction--improving, did have small bowel production, will have general surgery opinion on advancing diet, did start peripheral feeding IV Hypomagnesemia--replete HTN, HLD--stable with prn hydralazine will continue to hold ASA, losartan 25 mg PO qd, Lipitor 20 mg PO qd. until po intake is more reliable DM II--diet controlled only per pt -HgbA1c 6.0 on 03/31 -Insulin sliding scale plus BSGs q6h monitoring for toxic affects of insulin COPD, pulmonary fibrosis--does have abnormal lung exam, DuoNebs q6h prn and chronic oxygen -Pt wears 3L NC at rest, 4-5L NC with ambulation at home -Reports taking Ofev for pulmonary fibrosis, originally BID but now only qd H/o prostate cancer s/p cryotherapy/BPH--in remission per pt, no voiding issues at this time on flomax 0.4 GERD Prilosec to Protonix when taking PO DVT prophylaxis -Hold chemical prophylaxis in case procedure is needed -MANGO delaney and SCDs Code Status -Level I, FULL RESUSCITATION STATUS
[2017-04-03] MEDS ORDERED: CUSTOM PERIPHERAL PN 1 BAG IV SCH (16:00)
[2017-04-04] MEDS: INSULIN ASPART 100 UNITS/ML 3 ML PEN SC SCH ×2 (06:00)
[2017-04-04 06:11] LABS: HEMATOCRIT 35.8 % (42-52); HEMOGLOBIN 12.2 g/dL (14.0-18.0); MEAN CELL VOLUME 90.4 fL (80-100); MEAN CORPUSCULAR HEMOGLOBIN 30.8 pg (25-34); MEAN CORPUSCULAR HGB CONC 34.1 g/dl (32-36); MEAN PLATELET VOLUME 8.7 fL (7.4-10.4); PLATELET COUNT 223 K/uL (130-400); RED CELL DISTRIBUTION WIDTH CV 12.3 % (11.5-14.5); WHITE BLOOD COUNT 8.59 K/uL (4.8-10.8)
[2017-04-04 06:45] LABS: CREATININE 1.12 mg/dl (0.60-1.40); PHOSPHORUS 2.8 mg/dl (2.5-4.9); POTASSIUM 4.1 mmol/L (3.5-5.1)
[2017-04-04 07:41] VITALS: BP 157/79; PULSE 70; TEMP 36.7; O2SAT 94
[2017-04-04] MEDS: ALBUT/IPRATROP 3MG/0.5MG NEB 3 ML VIAL INH SCH ×2 (07:59→11:35)
[2017-04-04 08:00] VITALS: PULSE 72; O2SAT 98
--- NOTE | 2017-04-04 10:24 | Surgery Progress Note ---
Surgery Progress Note Date of Service Apr 04, 2017. Subjective + bowel movement (large this AM), + flatus, No nausea, No vomiting Denies abdominal pain Objective Vital Signs: Date Time Temp Pulse Resp B/P (MAP) Pulse Ox O2 Delivery O2 Flow Rate FiO2 04/04/17 08:00 72 16 98 Nasal Cannula 3.0 04/04/17 07:45 Nasal Cannula 3.0 04/04/17 07:41 36.7 70 18 157/79 (105) 94 3.0 04/03/17 23:30 Nasal Cannula 3.0 04/03/17 23:25 36.8 72 18 166/82 (110) 94 Room Air 04/03/17 19:19 36.9 76 20 158/81 (106) 93 Nasal Cannula 2.5 04/03/17 19:05 74 16 96 Nasal Cannula 3.0 04/03/17 16:00 Nasal Cannula 3.0 04/03/17 15:48 36.7 73 18 148/78 (101) 95 Nasal Cannula 3.0 04/03/17 15:46 61 16 96 Nasal Cannula 3.0 04/03/17 10:59 85 16 98 Nasal Cannula 5.0 Abdomen: normal bowel sounds, non tender, non distended, soft Laboratory Results: Results Past 24 Hours Test 04/03/17 12:36 04/03/17 18:01 04/03/17 23:30 04/04/17 05:35 Range/Units Bedside Glucose 106 110 109 70-99 mg/dl White Blood Count 8.59 4.8-10.8 K/uL Red Blood Count 3.96 4.7-6.1 M/uL Hemoglobin 12.2 14.0-18.0 g/dL Hematocrit 35.8 42-52 % Mean Corpuscular Volume 90.4 80-100 fL Mean Corpuscular Hemoglobin 30.8 25-34 pg Mean Corpuscular Hemoglobin Concent 34.1 32-36 g/dl RDW Standard Deviation 41.0 36.4-46.3 fL RDW Coefficient of Variation 12.3 11.5-14.5 % Platelet Count 223 130-400 K/uL Mean Platelet Volume 8.7 7.4-10.4 fL Sodium Level 137 136-145 mmol/L Potassium Level 4.1 3.5-5.1 mmol/L Chloride Level 104 98-107 mmol/L Carbon Dioxide Level 29 21-32 mmol/L Anion Gap 5.0 3-11 mmol/L Blood Urea Nitrogen 15 7-18 mg/dl Creatinine 1.12 0.60-1.40 mg/dl Est Creatinine Clear Calc Drug Dose 48.4 ml/min Estimated GFR () 70.0 Estimated GFR (Non- 60.4 BUN/Creatinine Ratio 12.9 10-20 Random Glucose 102 70-99 mg/dl Calcium Level 9.0 8.5-10.1 mg/dl Phosphorus Level 2.8 2.5-4.9 mg/dl Magnesium Level 2.3 1.8-2.4 mg/dl Test 04/04/17 06:05 Range/Units Bedside Glucose 103 70-99 mg/dl Assessment & Plan He feels well today Passed large bm this morning and a lot of flatus Can liberalize clear liquids Incresae activity
[2017-04-04 11:35] VITALS: PULSE 68; O2SAT 98
--- NOTE | 2017-04-04 11:37 | Discharge Instructions ---
Discharge Instructions Date of Service Apr 04, 2017. Admission Reason for Admission: SBO Discharge Discharge Diagnosis / Problem: small bowel obstruction resolved Discharge Goals Goal(s): Diagnostic testing, Therapeutic intervention Activity Recommendations Activity Limitations: as noted below Lifting Limitations: gradually increase as tolerated Please do not restart your vitamins, iron and cholesterol medicine for one week Please have liquid diet zander the rest of today and on wednesday, soft diet on wednesday, no cheese fruits or vegetables until Follow up with your family doctor this week . Current Hospital Diet Patient's current hospital diet: Clear Liquid Diet Discharge Diet Recommended Diet: Clear Liquid Diet Pending Studies Studies pending at discharge: no Laboratory Results Hemoglobin A1c Test 03/31/17 09:57 Range/Units Estimated Average Glucose 126 mg/dl Hemoglobin A1c 6.0 H 4.5-5.6 % Lipid Panel Test 04/03/17 05:07 Range/Units Triglycerides Level 104 0-150 mg/dl Medical Emergencies . Who to Call and When: Medical Emergencies: If at any time you feel your situation is an emergency, please call 911 immediately. . Non-Emergent Contact Non-Emergency issues call your: Primary Care Provider Call Non-Emergent contact if: temperature is above 101, your pain is unusual for you . . "Provider Documentation" section prepared by Carmelo Aleman. . VTE Core Measure Inpt VTE Proph given/why not?: Josue Su, SCD's
[2017-04-04] MEDS ORDERED: NURSING DECISION MEDICATION ORDER SCH (13:15)
--- NOTE | 2017-04-04 13:59 | Discharge Summary ---
Discharge Summary Date of Service Apr 04, 2017. Discharge Summary Admission Date: Mar 31, 2017 at 06:05 Discharge Date: Apr 04, 2017 Principal Diagnosis: small bowel obstruction resolved Immunizations: Have You Had Influenza Vaccine: Unknown Consultations: General surgical consultation Medication Reconciliation Continued Medications: Acetaminophen Tab (Tylenol) 325 Mg Tab 650 MG PO BID, TAB Aspirin (Aspirin 81 Low Dose) 81 Mg Chw DAILY Docusate Sodium (Colace) 100 Mg Cap 1 CAP PO BID for 30 Days, #60 CAP 2 Refills Ipratropium-Albuterol (Duoneb) 3 Ml Nebu 1 TREATMENT INH Q6H PRN for SOB/Wheezing, INHA Losartan Potassium (Losartan Potassium) 25 Mg Tab 25 MG PO DAILY Nintedanib Esylate (Ofev) 150 Mg Cap 150 MG PO DAILY Omeprazole (Prilosec) 20 Mg Capcr 20 MG PO DAILY, CAP Tamsulosin HCl (Tamsulosin HCl) 0.4 Mg Cap 0.4 MG PO DAILY Discontinued Medications: Ascorbic Acid (Ascorbic Acid) 500 Mg Tab 500 MG PO DAILY, TAB Atorvastatin (Lipitor) 20 Mg Tab 1 TAB PO DAILY for 90 Days, #90 TAB 1 Refill Ferrous Sulfate (Ferrous Sulfate) 325 Mg Tab 1 TAB PO DAILY Fish Oil (Lander-3) 1 Ea Cap 1 CAP PO DAILY, CAP Multiple Vitamin (Multivitamin) 1 Tab Tab 1 TAB PO DAILY for 90 Days, #90 TAB 3 Refills Discharge Exam Review of Systems: Constitutional: No fever, No chills, No weakness Respiratory: No cough, No wheezing, No dyspnea on exertion Cardiovascular: No chest pain, No PND, No edema Abdomen: No pain, No nausea, No vomiting, No diarrhea, No constipation Physical Exam: General Appearance: WD/WN, no apparent distress Eyes: normal inspection, sclerae normal Respiratory/Chest: chest non-tender, + rales (these are his baseline) Cardiovascular: regular rate, rhythm, no murmur Abdomen / GI: normal bowel sounds, non tender, soft Hospital Course 81-year-old male presented with a small bowel obstruction, treated conservatively with NG tube. The patient is a history of previous abdominal surgery. The patient had good resolution of symptoms by the evening of the and his NG tube was removed purse general surgery's instructions. Patient had a large bowel movement that evening and was able tolerate liquid diet on the . The patient desperately wanted to leave home I spoke with him his daughter and his prior to going home I instructed him to stand a liquid diet for 24 hours and a soft diet for 24 hours then a new foods and vessel diet for approximately the next week. I also instructed him to not take his typical vitamins and iron supplementation for 1 week with a take his essential medications which are outlined in his discharge summary to include aspirin losartan tamsulosin and omeprazole as well as his OFEV I injected the patient to follow up with his primary care provider in short order Patient remains on supplemental oxygen for his baseline pulmonary fibrosis and has a chronically abnormal lung exam associated with it Total Time Spent: Greater than 30 minutes This includes examination of the patient, discharge planning, medication reconciliation, and communication with other providers. Discharge Instructions Please refer to the electronic Patient Visit Report (Discharge Instructions) for additional information.
[2017-04-04 14:21] VITALS: BP 157/79; PULSE 68; TEMP 36.7; O2SAT 98
[2017-04-04] MEDS ORDERED: CUSTOM PERIPHERAL PN 1 BAG IV SCH ×2 (16:00)
[2017-04-04] MEDS ORDERED: INSULIN ASPART 100 UNITS/ML 3 ML PEN SC SCH (17:15)
== END 2017-04-04 15:44 | disposition home or self-care (01) | DRG 390 ==
LOC: C.MSW 06:05
PROVIDERS: ADMIT Hospitalist; ATTEND Internal Medicine
DX: K56.600 Partial intestinal obstruction, unspecified as to cause (principal); I10 Essential (primary) hypertension; E78.5 Hyperlipidemia, unspecified; E11.9 Type 2 diabetes mellitus without complications; J44.9 Chronic obstructive pulmonary disease, unspecified; J84.10 Pulmonary fibrosis, unspecified; K21.9 Gastro-esophageal reflux disease without esophagitis; N40.0 Benign prostatic hyperplasia without lower urinary tract symptoms; E83.42 Hypomagnesemia; Z79.82 Long term (current) use of aspirin; Z79.899 Other long term (current) drug therapy; Z87.891 Personal history of nicotine dependence; Z88.0 Allergy status to penicillin; Z99.81 Dependence on supplemental oxygen; Z85.46 Personal history of malignant neoplasm of prostate